=== PATIENT | female | born 1990 | race Caucasian/White ===

== ENCOUNTER 2017-09-27 14:01 | Emergency (ER) | payer OTHER ==
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
== END 2017-09-27 16:10 | disposition home or self-care (01) ==
LOC: SCSER 14:01
DX: O99.89 Other specified diseases and conditions complicating pregnancy, childbirth and the puerperium (principal); R07.89 Other chest pain; Z3A.19 19 weeks gestation of pregnancy; Z79.899 Other long term (current) drug therapy; V43.62XA Car passenger injured in collision with other type car in traffic accident, initial encounter
CPT/HCPCS: 76805; 76815

== ENCOUNTER 2018-02-17 08:00 | Inpatient (IN) | payer BC, OTHER ==
[2018-02-17] MEDS ORDERED: Promethazine HCl 25 MG/ML VIAL IM PRN ×5 (08:16→19:57)
[2018-02-17] MEDS ORDERED: Ondansetron PF 4 MG/2 ML Vial IVP PRN ×4 (08:16→19:57)
[2018-02-17] MEDS ORDERED: Bicitra 30 ML UDCUP PO SCH (08:16)
[2018-02-17] MEDS ORDERED: CEFAZOLIN 2 GM/50 ML BAG IVPB SCH (08:30)
[2018-02-17 08:35] VITALS: BMI 36.8
[2018-02-17] MEDS: Lactated Ringer's 1,000 ML IV SCH ×2 (08:50→09:47)
[2018-02-17 08:55] LABS: Hemoglobin 12.2 g/dL (12.0-16.0); Mean Corpuscular HGB CONC 33.3 g/dL (32.0-36.0); Mean Corpuscular Hemoglobin 29.6 pg (27.0-31.0); Mean Corpuscular Volume 88.8 fL (78.0-98.0); Mean Platelet Volume 7.9 fL (7.4-10.4); Platelet Count 143 thou/uL (130-400); RBC Distribution Width 12.7 % (11.5-14.5); Red Blood Cell (RBC) Count 4.13 mill/uL (4.20-5.40); White Blood Cell (WBC) Count 7.9 thou/uL (4.8-10.8)
[2018-02-17] MEDS ORDERED: Naloxone HCl 0.4 mg/ml Vial IVP PRN ×2 (09:33)
[2018-02-17] MEDS ORDERED: Ondansetron HCl/PF 4 MG/2 ML Vial IVP PRN (09:33)
[2018-02-17] MEDS ORDERED: Promethazine HCl 25 MG/ML VIAL SLOW IVP PRN (09:33)
[2018-02-17] MEDS ORDERED: Naloxone HCl 0.4 mg/ml Vial IV PRN ×3 (09:33→19:57)
[2018-02-17] MEDS ORDERED: Promethazine HCl 25 MG SUPP PR PRN ×2 (09:33→19:57)
[2018-02-17] MEDS ORDERED: Ketorolac Tromethamine 30 MG/ML VIAL IVP PRN (09:33)
[2018-02-17] MEDS ORDERED: diphenhydrAMINE 50 MG/ML VIAL IVP PRN ×2 (09:33→19:57)
[2018-02-17] MEDS ORDERED: Eucerin (Mineral Oil/Petrolatum,White) 30 gm Jar TOP PRN (09:33)
[2018-02-17 09:34] LABS: Syphilis Antibody Nonreactive (Nonreactive); Syphilis Antibody Index 0.02 S/CO (<1.00 Non-Reactive)
[2018-02-17 09:38] LABS: Hep B Surf Ag Non-Reactive S/CO (NonReactive)
[2018-02-17] MEDS ORDERED: Morphine PF 1 MG/ML SYR ONE (09:41)
[2018-02-17] MEDS ORDERED: Bupivacaine 0.75% W/DEXTROSE 8.25% 2 ML AMP ONE (09:41)
[2018-02-17] MEDS ORDERED: Oxytocin 10 UNITS/ML VIAL ONE (09:41)
[2018-02-17] MEDS ORDERED: Ondansetron PF 4 MG/2 ML Vial ONE ×3 (09:41→13:47)
[2018-02-17] MEDS ORDERED: Lidocaine 1% PF 5 ML VIAL ONE (09:44)
[2018-02-17] MEDS ORDERED: Communication Order-Pharmacy FS SCH (09:45)
--- NOTE | 2018-02-17 10:10 | PDOC.LDHP ---
Labor and Delivery H&P Chief complaint: scheduled section HPI: Pt is a 27yo @ 39 weeks here for RCS, declines TOLAC. Current gestational age (weeks): 39 Due date: 02/21/18 Dating criteria: first trimester ultrasound Grav: 2 Para: 1 OB History Details: 2012 CS 9#7oz Current complications: gestational diabetes (diet controlled) Abnormal US findings: No Past Medical History: obesity, GERD Current medications: pre- vitamins Previous surgical history: low tranverse CS Allergies/Adverse Reactions: Allergies Allergy/AdvReac Type Severity Reaction Status Date / Time No Known Allergies Allergy Verified 02/17/18 08:27 Social history: none - Physical Exam Vital signs reviewed and normal: yes General: NAD Heart: RRR Lungs: CTAB Abdomen: gravid Extremeties: no edema FHT: category 1 - OB Labs Blood type: A RH: negative Antibody Screen: negative HIV: negative RPR: negative HEPSAg: negative 1 hour GCT: positive 3 hour GTT: positive GBS: negative Rubella: non-immune - Assessment L&D Assessment: scheduled repeat section - Plan Plan: admit to L&D, to OR for section, informed consent obtained, anesthesia consult for pain management -: A/P: RCS @ 39 weeks, hx of failed VAVD, declines TOLAC. GDMA1. To OR for RCS.
--- NOTE | 2018-02-17 10:15 | PDOC.LDHP ---
Labor and Delivery H&P Allergies/Adverse Reactions: Allergies Allergy/AdvReac Type Severity Reaction Status Date / Time No Known Allergies Allergy Verified 02/17/18 08:27 - Plan -: SEE saved H and P
[2018-02-17] MEDS ORDERED: PHENYLEPHRINE-NS 100 MCG/ML 10 ML SYRINGE ONE ×2 (10:26→13:47)
--- NOTE | 2018-02-17 10:57 | PDOC.OPDEL ---
OB Operative/Delivery Note Delivery Dr/Surgeon: PALAK Assist: RICK/MAYANK Pre-Delivery Diagnosis: scheduled section Procedure/Post Delivery Dx: repeat low transverse CS - Findings A Sex: female Weight: 7 lb 11.812 oz - 1 min: 8 - 5 min: 9 - Additional Findings/Plan Placenta delivered: manual removal findings: low transverse hysterotomy without extension, normal uterus, normal tubes, normal ovaries Estimated blood loss: 700ml Compilations/Other Findings: nuchal x 3 Post delivery plan: routine recovery
[2018-02-17] MEDS ORDERED: Promethazine HCl 25 MG/ML VIAL ONE (12:06)
--- NOTE | 2018-02-17 12:12 | OP ---
DATE OF PROCEDURE: 02/17/2018 PREOPERATIVE DIAGNOSES: 1. G2, P1 at 39 weeks plus. 2. Declines trial of labor, here for scheduled section. POSTOPERATIVE DIAGNOSES: 1. G2, P1 at 39 weeks plus. 2. Declines trial of labor, here for scheduled section. PROCEDURES PERFORMED: Repeat low transverse section. SURGEON: Cristino Sue D.O. TELEVISION CAMERA OPERATOR: Kristin Wan M.D. COMPLICATIONS: None. ESTIMATED BLOOD LOSS: 700 mL. QUANTITATIVE BLOOD LOSS: Pending. ANESTHESIA: Spinal. OPERATIVE FINDINGS: 1. Vigorous female infant, weight 7 pounds 12 ounces to nursery, Apgars 8 and 9. 2. Low transverse hysterotomy without extension. 3. No intraabdominal adhesive disease. 4. Normal appearing placenta with 3-vessel cord. 5. Fundus firm after delivery of the placenta. 6. Surgical sites hemostatic. PROCEDURE DETAILS: The patient was taken back to the OR with IV fluids running. Once she was in the OR, spinal anesthesia was obtained and the patient was placed in dorsal supine position with a left lateral tilt. Britt catheter was placed using sterile technique. Bovie pad was applied to the thigh and the abdomen was prepped and draped in normal fashion for section. The abdomen was test ed. The surgeons were scrubbed in. Anesthesia was adequate. The surgery began with a Pfannenstiel skin incision. Once the skin was incised, the skin incision was carried down through the subcutaneou s tissue to the fascia. Once the fascia was reached, it was incised in the midline and extended supe rior laterally using curved Zarco scissors. Salazar clamps were placed at the superior border of the f ascia, which was sharply and bluntly dissected off the rectus abdominis muscles in both caudad and ce phalad direction allowing adequate space for the delivery of the infant. The rectus muscles were silas ntly entered. The peritoneum was bluntly entered and stretched laterally. An Osorio O retractor was placed in the abdominal cavity for retraction, visualization and protection of the wound. A bladder flap was created using Metzenbaum scissors and the bladder was dissected away from the planned hyste rotomy site. A low transverse hysterotomy was made with the scalpel. The hysterotomy was stretched using the Sosa maneuver. An amniotomy was performed and the infant's head was delivered through the hysterotomy without difficulty. A nuchal cord was noted with 3 loops that was loose around the infan t's neck. The body was then delivered after the reduction of the nuchal cord. The nose and mouth we re suctioned. The cord was doubly clamped and cut and the vigorous was handed off to special care nurses in attendance. Cord blood was collected. The placenta was delivered. The uterus was ex teriorized, massaged to firm, and cleared of clot and debris. The hysterotomy was inspected with no bleeding noted. The uterus, tubes, and ovary appeared normal. The hysterotomy was then closed with Monocryl suture in a running locked fashion from corner to corner and tied together in the midline. After the hysterotomy was closed, it was noted to be hemostatic. The hysterotomy and pericolic gutte rs were copiously irrigated and suctioned dry. Hysterotomy was inspected again with no bleeding note d. The rectus muscles and fascia were inspected and any small areas of bleeding were controlled with Bovie cauterization. The fascia was reapproximated with PDS suture from corner to corner and tied s eparately in the midline. Subcutaneous tissue was then irrigated and dried. No areas of bleeding we re noted. The subcutaneous layer was reapproximated with a series of interrupted plain suture. The skin was closed with 4-0 Monocryl and dressed with Dermabond dressing. The uterus palpated very firm . The patient was then cleaned, dried, taken to recovery room in good condition.
[2018-02-17] MEDS ORDERED: NS / Oxytocin 40 units/1000ml 1,000 ML ONE (12:44)
[2018-02-17] MEDS ORDERED: Famotidine/PF 20 mg/2ml Vial SLOW IVP SCH (13:15)
[2018-02-17] MEDS ORDERED: HYDROcodone/Acetaminophen 5/325 mg Tablet PO PRN (14:09)
[2018-02-17] MEDS ORDERED: Measles/Mumps/Rubella 10 MCG/0.5 ML VIAL SC ONE (14:09)
[2018-02-17] MEDS ORDERED: diphenhydrAMINE 25 MG CAP PO PRN (14:09)
[2018-02-17] MEDS ORDERED: Lactated Ringer's 1,000 ML IV SCH (14:09)
[2018-02-17] MEDS ORDERED: Bisacodyl 10 MG SUPP PR PRN (14:09)
[2018-02-17] MEDS ORDERED: NS / Oxytocin 40 units/1000ml 1,000 ML IV SCH (14:09)
[2018-02-17] MEDS ORDERED: Lanolin Ointment 7 GM TUBE TOP PRN (14:09)
[2018-02-17] MEDS: Ibuprofen 800 MG TAB PO SCH (16:27)
[2018-02-17] MEDS ORDERED: Hydrocerin (Eucerin) Cream 120 gm Jar TOP PRN (19:57)
[2018-02-17] MEDS ORDERED: NO PO,IM,IV OR SC NARCOTICS FOR 12HR EXCEPT BY ANESTHESIA PO SCH (19:57)
[2018-02-17] MEDS: Docusate Calcium (SURFAK) 240 MG CAP PO SCH (21:10)
[2018-02-17] MEDS: Ketorolac Tromethamine 30 MG/ML VIAL IVP PRN (22:11)
[2018-02-18] MEDS ORDERED: Sodium Chloride 0.9% 10 ML ONE ×2 (04:55→08:24)
[2018-02-18] MEDS: Ketorolac Tromethamine 30 MG/ML VIAL IVP PRN (05:07)
[2018-02-18 07:09] LABS: Hemoglobin 11.2 g/dL (12.0-16.0); Mean Corpuscular Volume 90.9 fL (78.0-98.0); Mean Platelet Volume 8.2 fL (7.4-10.4); Platelet Count 125 thou/uL (130-400); RBC Distribution Width 12.6 % (11.5-14.5); Red Blood Cell (RBC) Count 3.73 mill/uL (4.20-5.40); White Blood Cell (WBC) Count 8.5 thou/uL (4.8-10.8)
[2018-02-18] MEDS: Ibuprofen 800 MG TAB PO SCH ×3 (07:36→21:15)
[2018-02-18] MEDS: Prenatal Vitamin 1 TAB PO SCH (08:30)
[2018-02-18] MEDS: Docusate Calcium (SURFAK) 240 MG CAP PO SCH ×2 (08:30→21:15)
[2018-02-18] MEDS: HYDROcodone/Acetaminophen 5/325 mg Tablet PO PRN ×4 (08:31→23:25)
[2018-02-18] MEDS: Naloxone HCl 0.4 mg/ml Vial IV PRN ×2 (08:31→08:56)
--- NOTE | 2018-02-18 12:43 | PDOC.PP ---
Post Progress Note Post Day #: 1 Subjective: doing well, no concerns, breast feeding well, min pain PO intake tolerated: yes Flatus: yes Ambulation: yes Vital Signs (12 hours) Temp Pulse Resp BP Pulse Ox 02/18/18 11:41 98.5 F 80 18 108/63 02/18/18 07:36 97.8 F 65 18 101/64 98 02/18/18 04:45 97.9 F 63 18 101/60 02/18/18 01:00 97.7 F 72 20 104/58 L Weight Weight 264 lb - Physical Examination General: NAD Respiratory: non-labored breathing Abdominal: no distention Fundus firm & at: below umb Extremities: negative homans (B) Skin: CS incision dry & intact, no rash Neurological: no gross focal deficits Psychiatric: A&Ox3, normal affect Result Diagrams: 02/18/18 06:38 Additional Labs: Post Labs Blood Type A NEGATIVE 02/17/18 08:43 Hep Bs Antigen Non-Reactive S/CO (NonReactive) 02/17/18 08:43 (1) delivery without mention of indication, delivered, current hospitalization Code(s): O82 - ENCOUNTER FOR DELIVERY WITHOUT INDICATION Status: Acute Comment: -induced hypertension - Assessment/Plan POD1 doing well sp scheduled RCS. Likely DC tomorrow.
[2018-02-18] MEDS: Simethicone Chewable 80 MG TAB PO PRN (21:15)
[2018-02-19] MEDS: HYDROcodone/Acetaminophen 5/325 mg Tablet PO PRN ×3 (03:56→13:00)
[2018-02-19 04:32] VITALS: TEMP 98.2
[2018-02-19] MEDS: Ibuprofen 800 MG TAB PO SCH ×2 (05:18→13:28)
[2018-02-19 08:04] VITALS: BP 114/68
[2018-02-19] MEDS: Prenatal Vitamin 1 TAB PO SCH (08:35)
[2018-02-19] MEDS: Docusate Calcium (SURFAK) 240 MG CAP PO SCH (08:35)
[2018-02-19] MEDS: Simethicone Chewable 80 MG TAB PO PRN (08:36)
--- NOTE | 2018-02-19 11:31 | PDOC.PP ---
Post Progress Note Post Day #: 2 Subjective: no concerns, doing well PO intake tolerated: yes Flatus: yes Ambulation: yes Vital Signs (12 hours) Temp Pulse Resp BP Pulse Ox 02/19/18 08:04 98.2 F 78 16 114/68 97 02/19/18 03:50 98.2 F 76 20 116/68 02/18/18 23:30 98.4 F 74 20 109/57 L Weight Weight 264 lb - Physical Examination General: NAD Respiratory: non-labored breathing Abdominal: no distention Fundus firm & at: below umb Skin: CS incision dry & intact, no rash Neurological: no gross focal deficits Psychiatric: normal affect Result Diagrams: 02/18/18 06:38 Additional Labs: Post Labs Blood Type A NEGATIVE 02/17/18 08:43 Hep Bs Antigen Non-Reactive S/CO (NonReactive) 02/17/18 08:43 (1) delivery without mention of indication, delivered, current hospitalization Code(s): O82 - ENCOUNTER FOR DELIVERY WITHOUT INDICATION Status: Acute Comment: -induced hypertension - Assessment/Plan POD2 sp RCS @ 39 weeks. Doing well, plan for DC today.
== END 2018-02-19 14:15 | disposition home or self-care (01) | DRG 788 ==
LOC: L&D 08:00 → 3SW 13:35
PROVIDERS: ADMIT Obstetrics & Gynecology; ATTEND Obstetrics & Gynecology
PROC: 10D00Z1 Extraction of Products of Conception, Low, Open Approach (ICD-10-PCS; principal; 2018-02-17)
DX: O34.211 Maternal care for low transverse scar from previous cesarean delivery (principal); Z3A.39 39 weeks gestation of pregnancy; Z37.0 Single live birth; O24.420 Gestational diabetes mellitus in childbirth, diet controlled; K21.9 Gastro-esophageal reflux disease without esophagitis; O99.613 Diseases of the digestive system complicating pregnancy, third trimester; O99.214 Obesity complicating childbirth; E66.9 Obesity, unspecified; O69.81X0 Labor and delivery complicated by cord around neck, without compression, not applicable or unspecified; Z68.36 Body mass index [BMI] 36.0-36.9, adult
CPT/HCPCS: 36415; 36416; 51702; 85027; 85461; 86780; 86850; 86870; 86900; 86901; 87340; 90384; 96372; J1885; J2001; J2274; J2310; J2405; J2550; J2590; J3490; S0028

== ENCOUNTER 2021-04-09 10:48 | Outpatient (CLI) | payer BC | END 2021-04-09 10:49 | disposition home or self-care (01) | LOC: ULT 10:48 | PROVIDERS: ATTEND Family Medicine | DX: R10.9 Unspecified abdominal pain (principal); R79.89 Other specified abnormal findings of blood chemistry; R16.0 Hepatomegaly, not elsewhere classified | CPT/HCPCS: 76700 ==